=== PATIENT | female | born 1965 | race Hispanic/Latino ===

== ENCOUNTER 2018-03-08 19:34 | Emergency (ER) | payer OTHER, SELFPAY ==
[2018-03-08 20:03] LABS: Urine Blood NEGATIVE (NEG); Urine Glucose NEGATIVE (NEG); Urine Protein NEGATIVE (NEG); Urine Specific Gravity 1.015 (1.005-1.030)
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
[2018-03-08 21:19] VITALS: BP 146/77; O2SAT 99
== END 2018-03-08 21:04 | disposition home or self-care (01) ==
LOC: ER 19:34
DX: S39.012A Strain of muscle, fascia and tendon of lower back, initial encounter (principal); S16.1XXA Strain of muscle, fascia and tendon at neck level, initial encounter; I10 Essential (primary) hypertension; E03.9 Hypothyroidism, unspecified; D64.9 Anemia, unspecified; V43.62XA Car passenger injured in collision with other type car in traffic accident, initial encounter
CPT/HCPCS: 70450; 72125; 72131; 81003; 99284

== ENCOUNTER 2019-07-22 06:27 | Day surgery (SDC) | payer OTHER ==
[2019-07-20 13:43] LABS: Absolute Lymphocytes (CBC) 1.7 K/uL (0.7-4.9); Basophils % 0.6 % (0-1.3); Hematocrit 40.8 % (36.0-45.0); Lymphocytes % 29.1 % (15.3-44.8); MPV 8.7 fL (7.6-11.3); RBC Red Blood Cell Count 4.88 M/uL (3.86-4.86)
[2019-07-20 13:51] LABS: Protime INR 0.96
[2019-07-20 14:00] LABS: Urine Appearance CLEAR; Urine Bilirubin NEGATIVE (NEG); Urine Blood NEGATIVE (NEG); Urine Color YELLOW; Urine Glucose NEGATIVE (NEG); Urine Protein NEGATIVE (NEG); Urine Specific Gravity 1.015 (1.005-1.030); Urine Urobilinogen 0.2 mg/dL (0.2-1.0); Urine pH 5.5 (5.0-7.0)
[2019-07-20 14:03] LABS: Urine Microscopic Reflex NO UMIC
[2019-07-20 14:07] LABS: BUN Blood Urea Nitrogen 10 mg/dL (7-18); Bicarbonate 28 mmol/L (21-32); Glucose Level 97 mg/dL (74-106); Potassium 3.7 mmol/L (3.5-5.1); Sodium Level 141 mmol/L (136-145)
--- OUTSIDE RECORDS SUMMARY | 2019-07-22 06:30 | XMS REPORT ---
:1965 [facility] Address [address] [place] [address] Dr. Brito [address] [place] [id number] Care Team Providers Name Role Phone Unavailable Unavailable Unavailable Problems This patient has no known problems. Allergies, Adverse Reactions, Alerts This patient has no known allergies or adverse reactions. Medications This patient has no known medications.
[2019-07-22] MEDS ORDERED: Ringers Lactate 1,000 ML IV ONE ×4 (06:56→13:14)
[2019-07-22] MEDS ORDERED: CEFAZOLIN/SWI 2gm 2 GM/20 ML SYR ONE (06:57)
[2019-07-22] MEDS ORDERED: propofoL 200 MG/20 ML VIAL IV ONE (07:11)
[2019-07-22] MEDS ORDERED: GLYCOPYRROLATE 0.2 MG/ML SYR ONE (07:11)
[2019-07-22] MEDS ORDERED: ROCURONIUM 50 MG/5 ML VIAL IV ONE (07:11)
[2019-07-22] MEDS ORDERED: LIDOCAINE 2% MPF 5 ML VIAL ONE (07:12)
[2019-07-22] MEDS ORDERED: MIDAZOLAM HCL 2 MG/2 ML INJ ONE (07:12)
[2019-07-22] MEDS ORDERED: ONDANSETRON 4 MG/2 ML VIAL ONE (07:12)
[2019-07-22] MEDS ORDERED: dexAMETHasone 10 MG/ML VIAL ONE (07:12)
[2019-07-22] MEDS ORDERED: FENTANYL CITR 250 MCG/5 ML ONE (07:12)
[2019-07-22] MEDS ORDERED: NA CHLORIDE 0.9% 100 ML IV ONE (07:39)
[2019-07-22] MEDS ORDERED: CEFAZOLIN SODIUM 1 GM/VIAL ONE (07:39)
[2019-07-22] MEDS ORDERED: VASOPRESSIN 20 UNIT/ML VIAL ONE (07:40)
[2019-07-22] MEDS ORDERED: BUPIVACAINE 0.25% PF 30 ML VIAL ONE (07:40)
[2019-07-22] MEDS ORDERED: KETOROLAC 30 MG/ML INJ ONE (11:38)
[2019-07-22] MEDS ORDERED: FENTANYL CITR 100 MCG/2 ML ONE (12:09)
[2019-07-22] MEDS ORDERED: MORPHINE 10 MG/ML VIAL ONE (12:47)
[2019-07-22] MEDS ORDERED: PROMETHAZINE INJ 25 MG/ML AMP ONE (13:32)
[2019-07-22] MEDS ORDERED: MORPHINE 4 MG/ML SYR IV PRN (13:41)
[2019-07-22] MEDS ORDERED: PROMETHAZINE INJ 25 MG/ML AMP IV PRN (13:41)
[2019-07-22] MEDS: HYDROMORPHONE HCL 1 MG/ML INJ ONE ×4 (13:47→15:37)
--- NOTE | 2019-07-22 13:50 | P.BOP ---
Preoperative diagnosis: stage 3 incomplete uterovaginal prolapse, post prolapse menorrhagia Postoperative diagnosis: same, post enterocele Primary procedure: TLH BSO, USLS colpopexy, post wall and enterocele repair Secondary procedure: perineorrhaphy Cystoscopy Plant Electrical Engineer: ana paula Estimated blood loss: min Specimen: uterus and tubes adn ovaries Anesthesia: General Complications: None Drain(s): Urinary catheter Transferred to: Recovery Room Condition: Good
[2019-07-22] MEDS ORDERED: Ringers Lactate 1,000 ML IV SCH (14:00)
[2019-07-22 17:29] VITALS: O2SAT 98
[2019-07-22 18:53] VITALS: BMI 32.1
[2019-07-22] MEDS: IBUPROFEN 600 MG TAB PO PRN (23:55)
[2019-07-23] MEDS ORDERED: Ringers Lactate 1,000 ML IV ONE (03:38)
[2019-07-23] MEDS: HYDROCODONE/APAP 5/325 MG TAB PO PRN ×2 (05:15→11:52)
[2019-07-23 05:40] LABS: Absolute Lymphocytes (CBC) 2.4 K/uL (0.7-4.9); Basophils % 0.2 % (0-1.3); Hematocrit 34.5 % (36.0-45.0); Lymphocytes % 24.9 % (15.3-44.8); MPV 8.4 fL (7.6-11.3)
[2019-07-23] MEDS ORDERED: LEVOTHYROXINE SOD 0.05 MG TABLET PO SCH (06:30)
[2019-07-23] MEDS ORDERED: IBUPROFEN 200 MG TAB PO ONE (07:50)
[2019-07-23] MEDS: IBUPROFEN 600 MG TAB PO PRN (07:55)
[2019-07-23 08:37] VITALS: BP 140/76
[2019-07-23] MEDS ORDERED: HYDROCODONE/APAP 5/325 MG TAB ONE (11:48)
[2019-07-23 11:56] VITALS: TEMP 98.1
--- NOTE | 2019-07-26 14:13 | OP ---
Date of Procedure: 07/22/2019 Surgeon: Tessa Townsend MD Substitute Teacher: Sanket Love. Preoperative Diagnoses: Stage III incomplete uterovaginal prolapse, apical prolapse being most signi ficant, posterior enterocele, posterior wall prolapse, menorrhagia. Postoperative Diagnoses: Stage III incomplete uterovaginal prolapse, apical prolapse being most sign ificant, posterior enterocele, posterior wall prolapse, menorrhagia and perineal body defect. Procedures Performed: Total laparoscopic hysterectomy, bilateral salpingo-oophorectomy, uterosacral ligament suspension, colpopexy, posterior colporrhaphy, posterior enterocele repair and perineorrhaph y, cystoscopy. Estimated Blood Loss: Minimal. Anesthesia: General endotracheal. Specimens: Uterus, bilateral tubes, and ovaries. Complications: No complications. Drains: No drains. Condition: Stable. Findings: A small amount of endometriosis in the posterior cul-de-sac, but mostly unremarkable perit card cavity. POP-Q 0, +2, -2, 4 to 5 cm moderate, TVL 8 cm, Ap was 0 and Bp was 0, point D was -3. Brief History And Physical: The patient is a 53-year-old female presenting with heavy periods and co mplaints of vaginal bulge. She was evaluated with endometrial sampling, which was negative for atypi a or malignancy. A transvaginal ultrasound, no adnexal masses were found. Op note reviewed from her previous procedure, which she presumed was for prolapse and incontinence, but treatment was only ret ropubic sling. Operative note reviewed from Dr. Fernandes at [facility], so I reviewed with the patient b oth her past procedure. Her expectations were what could be done to repair her prolapse, which is mo stly due to a bulge symptoms. Anterior and apical prolapse being the most significant that were nota ble in the office. Stage III anterior wall prolapse for diagnosis options were pessary and physical therapy. Surgical m anagement included non mesh repair or mesh repair, mesh augmented repair with cervical colpopexy was only option. Discussed with the patient and non-mesh repairs with uterosacral ligament suspension or vaginal were discussed. Benefits, risks, recurrence rate and complications of each proce dure were discussed with the patient. After understanding that the sacral colpopexy was more long-la sting and its repair with the least amount of recurrence, however, uterosacral ligament suspension or sacrospinous fixation were procedures without the mesh. Patient leaning towards having a prolapse r epair without mesh. She has not had any prolapse repair in the past. This being a primary procedure . It was discussed with her that this was unacceptable alternative with less ideal result than the c olpopexy. After thinking this over with multiple appointments including the day of surgery, she deci ded to have been proceed without mesh repair, so consenting her for a hysterectomy, bilateral salping o-oophorectomy, uterosacral suspension or sacral spine and posterior repair, and other defect repairs as indicated. Description Of Procedure: After exam under anesthesia, she was taken back to the OR. 2 g of Ancef w ere given. The patient was placed in supine fashion. General anesthesia given, placed in dorsal lit hotomy position using Jerel stirrups. Arms tucked by the side. Abdomen, vulva, vagina, and perineum were prepped and draped in a sterile fashion. After time-out was done. Once the large VCare was in troduced into the large uterine vaginal cuff manipulator was introduced into the uterus. Martin into the bladder. This area was then draped. 1 cm infraumbilical incision made with a scalpel using the open laparoscopy technique. Fascia was incised, tagged with 0 Vicryl sutures. Peritoneum entered sh arply with scissors and S retractors placed, Jeff introduced. Site of entry was checked, unremarka ble. The patient was placed in Trendelenburg. Upper abdominal surface was unremarkable. A 10 mm mora prapubic, two 5 ports on the left and right lower quadrants were placed under direct vision after inj ecting Marcaine at the fascia and the skin. The same was done at the end when remove the ports. After visualizing the posterior aspect of the uterus, the uterosacral ligament was prominent on the l eft side, on the right side as well. After picking up the uterosacral, this appeared to be a viable option. Then, ureters were visualized from the pelvic brim to the ureteric tunnel. There was no mavis tomical distortion and there were in the normal course. Anterior peritoneum with the scar was noted, but no other determined factors to proceed with uterosacral suspension. 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 Plan was to remove this along with the hysterectomy if possible. A 5 mm LigaSure was used to take down the infundibulopelvic ligament opening of the broad ligament ta aidee down the mesosalpinx tube on the right side and once this was attached, the specimen was placed s eparately in the anterior cul-de-sac. The round ligament taken down the peritoneum opened up on the right side, creating a bladder flap posteriorly to the level of the vaginal cuff. The broad ligament was taken down, skeletonizing the muscle of the opposite side, similar dissection was performed, anna ing down the infundibulopelvic ligament and ovary to mesosalpinx and the tube. Once this was detache d as well, the tube was removed separately and then the ovary was placed in the anterior cul-de-sac. All these were held tied together with the help of a Vicryl loop, so that they would not be difficul t to identify at the end of the procedure, placed in the right lower quadrant at the pelvic brim. Round ligament taken down, the anterior and posterior broad ligament opened up. Posterior broad liga ment taken to the uterosacral and anterior broad ligament used to raise the bladder flap. The bladde r flap was raised optimally dissecting the bladder down at least 1.5 cm inferior to the level of the cup. Then, the vessels were taken down on both sides and the cardinal ligament first on the right, t hen on the left with the bipolar basket tip and then the LigaSure. Then, circumferential colpotomy w ith a monopolar hook blade and the specimen pulled out through the vagina. There was small amount of bleeding at the level of the colpotomy on the right side and this was cauterized most likely from th e area of the vaginal branches with the help of bipolar paddle medium tip. A V-Loc suture was used to close the vaginal cuff in 2 layers. This was done, closing the epithelial layer with the connective tissue from right to left, then left to right, closing the fascial edges t owards the posterior and anterior wall together with a good imbricating stitch and the fir st line. Then, 2 back sutures were taken in order to lock a V-Loc. Uterosacral suspension was performed. Next, 3-0 Vicryl sutures were placed on the distal ends of the uterosacral ligaments carefully on both sides, 1 on each side, and these were held for retraction fo r me to identify the uterosacral bladder. Once this was done, I was able to place after visualizing the ureter, which was significantly farther at least 1.5 cm from the area that I was putting my stitc h. The first suture was placed with Center Line-Michel on a needle and from medial to lateral, late ral to medial, then through the posterior vaginal connective tissue and anterior vaginal connective t issue, and this suture was tied down. Similar suture was placed on the left side as well taking the uterosacral and putting it through the posterior vaginal, anterior vaginal wall for support. Once th stephy 2 sutures were tied down, 0 PDS suture was taken and placed on the proximal part of the uterosacr al and the suture was brought together to the vaginal apex medial to the original suture. Both of th em similar suture was placed on the left side as well. These were much farther away from the ureter and were completely safe. Then, once these sutures were tied down and supporting the vaginal apex, p elvic exam was performed. The anterior vaginal wall was completely straightened out with point AA at -3 and point BA at -3. The total vaginal length was about 6 to 7 cm anteriorly and this was optimal for this patient. No culdoplasty needed to be performed, however, there was indication of a posteri or enterocele, so this would be done through the vagina, so cystoscopy was performed. Both ureteric orifices had strong jets of urine. No evidence of any injury to the bladder. Scope was pulled out. Martin was reintroduced. Gloves were changed. Once the laparoscopically thorough irrigation, suctio n of the pelvic cavity were performed, all the pedicles were hemostatic. All incisions were retrieve d. right lower quadrant before the uterus was removed, removed through the vagina. All the trocars were removed. Gas desufflated. Fascia closed with 0 Vicryl in [id number] fashi on at the umbilicus and similar simple 0 Vicryl suture at the suprapubic site as well. All the skin incisions closed with the help of interrupted 4-0 Monocryl and Steri-Strips placed. Changing my gloves again, coming back down, posterior repair was approached. There was no need for a ny anterior . There was no midline defect that was identified even after application of 1 Allis clamp on the anterior wall. The sling was in place and this was satisfactory. Posteriorly, the hymen was held with 2 Allis clamps. The posterior wall and the perineum were inject ed with dilute vasopressin 20 mL, 20 units mixed with 40 mL of normal saline that dilution was used. Then, a yenny-shaped incision was made from the posterior wall in the lower 1/3 to 1/2, and then to the ending up at the level of the hymen and this epithelial section was dissected away from the rect ocele with the help of Jennifer just peeling off the epithelial layer leaving the rectovaginal septum. T hen, the dissection of the posterior wall was continued and elevating the lateral vaginal epithelial edges and the posterior compartment. Then, proximally towards the cuff closure, enterocel e was dissected carefully, sharp dissection and blunt dissection in this area. Once the entire posterior compartment was laid out, there was a posterior and large posterior enteroc cain, this was reduced with the help of 3-0 Vicryl suture in a pursestring fashion. Once this was don e, in the posterior rectovaginal septum, I could see the defect at the lateral transverse defect deta evans the rectovaginal septum from the right lateral wall, so once these remnants of the edges of the rectovaginal septum were identified, then these were closed with the help of 2-0 PDS in a continuous running fashion coming down and then going back up, reattaching it, and this reduce the posterior co mpartment defect in a very optimal fashion. On rectovaginal exam, no defect was identified. The madelyn ve was changed and then perineal body repair was done with the help of 2-0 Vicryl with interrupted mora tures x2. After opening up the perineal skin with Jennifer, then the perineal body was repaired. The PD S was placed through this connecting to the perineal body and then, it was run back up and closed and the suture tied. The vaginal epithelium was trimmed with the help of a Barbara, making sure that this was optimal for va ginal patency. Once this was trimmed slightly, then closure was performed with the help of a 2-0 Berry ryl in a continuous running horizontal mattress fashion. Once this was done, the perineal incision w as closed with the help of a 3-0 Vicryl in a continuous running fashion and the subcutaneous tissue b ringing the remnants of the perineal body together still and then the closure of the subcuticular per ineal skin, and once this stitch was tied inside the hymen, rectal exam was performed. No evidence o f any injury or suture in the rectal mucosa. Gloves were changed. Martin was left in place. Instrum ent, needle, and sponge counts were correct. Patient tolerated the procedure well. She was recovere d from anesthesia and taken to PACU in stable condition. She will have care on the floor until the n ext morning and then voiding trial will be conducted and she will be discharged home. She has a 1-we ek appointment in the office. MAUDE/MAYO Voice ID: [id number] Report ID: [id number]
== END 2019-07-23 12:10 | disposition home or self-care (01) ==
LOC: OR 06:27 → 2ND-WC 17:21 → OR 07-23 12:10
PROVIDERS: ATTEND Obstetrics & Gynecology
PROC: 0UT24ZZ Resection of Bilateral Ovaries, Percutaneous Endoscopic Approach (ICD-10-PCS; 2019-07-22)
PROC: 0UT74ZZ Resection of Bilateral Fallopian Tubes, Percutaneous Endoscopic Approach (ICD-10-PCS; 2019-07-22)
PROC: 0USG4ZZ Reposition Vagina, Percutaneous Endoscopic Approach (ICD-10-PCS; 2019-07-22)
PROC: 0UQF0ZZ Repair Cul-de-sac, Open Approach (ICD-10-PCS; 2019-07-22)
PROC: 0JQC0ZZ Repair Pelvic Region Subcutaneous Tissue and Fascia, Open Approach (ICD-10-PCS; 2019-07-22)
PROC: 0HQ9XZZ Repair Perineum Skin, External Approach (ICD-10-PCS; 2019-07-22)
PROC: 0UT94ZZ Resection of Uterus, Percutaneous Endoscopic Approach (ICD-10-PCS; principal; 2019-07-22 07:30)
DX: N81.2 Incomplete uterovaginal prolapse (principal); N95.2 Postmenopausal atrophic vaginitis; N92.0 Excessive and frequent menstruation with regular cycle; R10.2 Pelvic and perineal pain; R32 Unspecified urinary incontinence
CPT/HCPCS: 85025 ×2; 80048; 36415 ×2; 86900; 86850; 81025; 85610; 86901; 88307; 85730; 81003; 58571; 57425; 57265; J2704; J2550; J2250; J3010 ×2; J1100; J1170 ×2; J0690; J7120 ×6; J2405